=== PATIENT | female | born 1950 | race Caucasian/White ===

== ENCOUNTER 2018-11-02 16:18 | Inpatient (IN) | payer OTHER ==
[2018-11-02 19:51] VITALS: BMI 35.6
--- NOTE | 2018-11-03 00:36 | HP ---
COWS - Scale Resting Pulse: 0= NE 80 or Below Sweatin=Flushed/Facial Moisture Restless Observation: 3= Extraneous Movement Pupil Size: 0= Normal to Room Light Bone or Joint Aches: 4=Acute Joint/Muscle Pain Runny Nose/ Eye Tearin= Runny Nose/Eyes GI Upset > 30mins: 2= Nausea/Diarrhea Tremor Observation: 2= Slight Tremor Visible Yawning Observation: 1= 1-2x During Session Anxiety or Irritability: 2=Irritable/Anxious Goose Flesh Skin: 0=Smooth Skin COWS Score: 18 CIWA Score Nausea/Vomitin Muscle Tremors: 1-None Visible, but [place] Anxiety: 4-Mod. Anxious/Guarded Agitation: 4-Moderately Restless Paroxysmal Sweats: 3 Orientation: 0-Oriented Tacttile Disturbances: 0-None Auditory Disturbances: 0-None Visual Disturbances: 2-Mild Sensitivity Headache: 4-Moderately Severe CIWA-Ar Total Score: 21 - Admission Criteria OAS Guidelines: Admission for Medically Managed Detox: Requires at least one of the followin. CIWA greater than 12 2. Seizures within the past 24 hours 3. Delirium tremens within the past 24 hours 4. Hallucinations within the past 24 hours 5. Acute intervention needed for co occurring medical disorder 6. Acute intervention needed for co occurring psychiatric disorder 7. Severe withdrawal that cannot be handled at a lower level of care (continued vomiting, continued diarrhea, abnormal vital signs) requiring intravenous medication and/or fluids 8. Patient presents the following: CIWA greater than 12, Acute intervention needed for co-occurring med or psych disorder (hx/o non withdrawal seizures,) Admission Criteria Met: Admission criteria met Admission ROS [facility] Chief Complaint: c/o worsening withdrawal sx's Allergies/Adverse Reactions: Allergies Allergy/AdvReac Type Severity Reaction Status Date / Time strawberry Allergy Verified 11/03/18 00:30 History of Present Illness: 68 Y.O. FEMALE WITH HX/O ALCOHOLISM/OPIOID DEPENDENCE HERE FOR DETOX. CLIENT WAS REFERRED BY [facility] AFTER PRESENTING THERE FOR DETOX. THIS IS HER FIRST ADMISSION HERE. PRESENTS WITH C/O WITHDRAWAL SX'S. CIWA 21/ COWS 18. FRED 0, UTOX +FEN, OPI, MTD, BZO. CLIENT DENIES METHADONE PROGRAM OF BENZO ABUSE. STATES SHE DOES NOT REMEMBER WHEN SHE WAS LAST DETOXED. SHE REPORTS SNIFFING 4 BAGS OF HEROIN DAILY, LAST USE 1 DAY AGO. DRINKING 3 SHOTS OF VODKA DAILY LAST USE 1 DAY AGO. REPORTS LONGEST CLEAN TIME 1YEAR. STATES RELAPSING 1 MONTH AGO DUE TO THE OF HER MOTHER. DENIES MENTAL HEALTH HX/O TO SI/HI/AVH, DRUG OVERDOSE. REPORTS HX/O SEIZURES ON KEPPRA. LAST TAKEN 4 DAYS AGO SHE RAN OUT OF MEDICATION. LIVES ALONE, RETIRED, DENIES LEGALS. Exam Limitations: Physical Impairment (AMBULATES WITH CANE DUE TO UNSTEADY GAIT) - Ebola screening Have you traveled outside of the country in the last 21 days: No (N) Have you had contact with anyone from an Ebola affected area: No Have you been sick,other than usual withdrawal symptoms: No Do you have a fever: No - Review of Systems Constitutional: Chills, Loss of Appetite, Malaise, Night Sweats, Changes in sleep EENT: reports: Nose Congestion, Dental Problems (MISSING TEETH), Other (RUNNY NOSE) Respiratory: reports: No Symptoms reported Cardiac: reports: Edema (BLE) GI: reports: Diarrhea, Nausea, Poor Appetite, Poor Fluid Intake, Abdominal cramping : reports: No Symptoms Reported Musculoskeletal: reports: Joint Pain (BL KNEES) Integumentary: reports: Sweating Neuro: reports: Seizure, Tremors (FELT) Endocrine: reports: No Symptoms Reported Hematology: reports: No Symptoms Reported Psychiatric: reports: Orientated x3, Agitated (IRRITABLE), Anxious, Depressed Other Systems: Reviewed and Negative Patient History - Patient Medical History Hx Anemia: No Hx Asthma: No Hx Chronic Obstructive Pulmonary Disease (COPD): No Hx Cancer: No Hx Cardiac Disorders: No Hx Congestive Heart Failure: No Hx Hypertension: No Hx Hypercholesterolemia: No Hx Pacemaker: No HX Cerebrovascular Accident: No Hx Seizures: Yes Hx Dementia: No Hx Diabetes: No Hx Gastrointestinal Disorders: No Hx Liver Disease: No Hx Genitourinary Disorders: No Hx Sexually Transmitted Disorders: No Hx Renal Disease (ESRD): No Hx Thyroid Disease: No Hx Human Immunodeficiency Virus (HIV): No Hx Hepatitis C: No Hx Depression: No Hx Suicide Attempt: No Hx Bipolar Disorder: No Hx Schizophrenia: No Other Medical History: DENIES - Patient Surgical History Past Surgical History: Yes Other Surgical History: ECTOPIC Anesthesia Reaction: No - PPD History Previous Implant?: Yes Documented Results: Negative w/o proof Implanted On Prior [facility] Admission?: No PPD to be Administered?: Yes - Reproductive History Patient is a Female of Child Bearing Age (11 -55 yrs old): Yes Patient : No (NEG [facility]) - Smoking Cessation Smoking history: Never smoked Initiated information on smoking cessation: No - Substance & Tx. History Hx Alcohol Use: Yes Hx Substance Use: Yes Substance Use Type: Alcohol, Cocaine, Heroin Hx Substance Use Treatment: Yes ([facility]) - Substances Abused HEROIN Route: Inhalation Frequency: Daily Amount used: 4 BAGS Age of first use: 68 Date of Last Use: 11/01/18 VODKA Route: Oral Frequency: 3-6 times per week Amount used: 4 SHOTS Age of first use: 68 Date of Last Use: 11/01/18 COCAINE Route: Inhalation Frequency: Daily Amount used: 4 BAGS Age of first use: 68 Date of Last Use: 11/01/18 Family Disease History - Family Disease History Family Disease History: CA: Mother (LUNG-) Admission Physical Exam S - Vital Signs Vital Signs: Vital Signs - 24 hr 11/02/18 19:49 Temperature 96.8 F L Pulse Rate 75 Respiratory 18 Rate Blood Pressure 131/77 - Physical General Appearance: Yes: Appropriately Dressed, Moderate Distress, Tremorous ( FELT), Sweating (MOIST SKIN), Anxious, Other ([place]) HEENTM: Yes: EOMI, Normocephalic, Normal Voice, ERYN, Pharynx Normal, Other ( POOR DENTITION WITH MISSING TEETH) Respiratory: Yes: Within Normal Limits, Chest Non-Tender, Lungs Clear, No Respiratory Distress, No Accessory Muscle Use Neck: Yes: No masses,lesions,Nodules, Supple, Trachea in good position Breast: Yes: Breast Exam Deferred Cardiology: Yes: Regular Rhythm, Regular Rate, S1, S2, Murmur Abdominal: Yes: Non Tender, Soft, Protuberent Genitourinary: Yes: Other (NO C/O) Back: Yes: Normal Inspection Musculoskeletal: Yes: Other (UNSTEADY GAIT. AMBUALTED WITH CANE 2/2 JOINT PAIN) Extremities: Yes: Normal Capillary Refill, Non-Tender, Tremors Neurological: Yes: Fully Oriented, Alert, Motor Strength 5/5, Depressed Affect Integumentary: Yes: Warm, Moist, Pitting Edema (RCAE BLE) Lymphatic: Yes: Within Normal Limits - Diagnostic (1) Alcohol dependence with uncomplicated withdrawal Current Visit: Yes Status: Acute (2) Uncomplicated opioid dependence Current Visit: Yes Status: Acute (3) Cocaine abuse, uncomplicated Current Visit: Yes Status: Acute (4) Seizure disorder Current Visit: Yes Status: Chronic (5) Ambulates with cane Current Visit: Yes Status: Chronic (6) At risk for dehydration due to poor fluid intake Current Visit: Yes Status: Acute (7) Depressed affect Current Visit: Yes Status: Acute (8) Recent bereavement Current Visit: Yes Status: Acute (9) Substance induced mood disorder Current Visit: Yes Status: Acute Cleared for Admission [facility] - Detox or Rehab [facility] Level of Care: Medically Managed Detox Regimen/Protocol: Methadone/Librium Claeared for Rehab Admission: No [facility] Breath Alcohol Content Breath Alcohol Content: 0 Urine Pregancy Test - Result Urine Test Results: Negative - NO Line Present Urine Drug Screen - Results Drug Screen Negative: No Urine Drug Screen Results: OPI-Opiates, BZO-Benzodiazepines, MTD-Methadone, FEN- Fentanyl Inpatient Rehab Admission - Rehab Decision to Admit Inpatient rehab admission?: No
[2018-11-03] MEDS ORDERED: MAG HYDROX/AL HYDROX/SIMETH 30 ML UNIT-DOSE CUP PO PRN (00:43)
[2018-11-03] MEDS ORDERED: guaiFENesin 200 MG/10 ML 10 ML UNIT-DOSE CUPS PO PRN (00:43)
[2018-11-03] MEDS ORDERED: NALOXONE HCL 0.4 MG/ML VIAL IVPUSH PRN (00:43)
[2018-11-03] MEDS ORDERED: MENTHOL/PHENOL 1 EACH UD MM PRN (00:43)
[2018-11-03] MEDS ORDERED: P-EPHED 60MG/TRIPROLIDI 2.5MG TABLET PO PRN (00:43)
[2018-11-03] MEDS ORDERED: MAGNESIUM CITRATE 300 ML BOTTLE PO PRN (00:43)
[2018-11-03] MEDS ORDERED: DICYCLOMINE HCL 10 MG CAPSULE PO PRN (00:43)
[2018-11-03] MEDS ORDERED: MAGNESIUM HYDROX 2400MG/30ML ORAL SUSPENSION 30 ML CUP PO PRN (00:43)
[2018-11-03] MEDS ORDERED: cloNIDine HCL 0.1 MG TABLET PO PRN (00:43)
[2018-11-03] MEDS ORDERED: IBUPROFEN 400 MG TABLET (FP) PO PRN (00:43)
[2018-11-03] MEDS ORDERED: MELATONIN 5 MG TABLETS PO PRN (00:43)
[2018-11-03] MEDS ORDERED: BISMUTH SUBSALICYLATE 524 MG/30 ML UD PO PRN (00:43)
[2018-11-03] MEDS ORDERED: ONDANSETRON *ODT* 4 MG TABLET SL PRN (00:43)
[2018-11-03] MEDS ORDERED: METHOCARBAMOL 500 MG TABLET PO PRN (00:43)
[2018-11-03] MEDS ORDERED: chlordiazePOXIDE HCL 25 MG CAPSULE PO ONE (00:43)
[2018-11-03] MEDS ORDERED: chlordiazePOXIDE HCL 10 MG CAPSULE PO PRN (00:43)
[2018-11-03] MEDS ORDERED: hydrOXYzine PAMOATE 25 MG CAPSULE (FP) PO PRN (00:43)
[2018-11-03] MEDS ORDERED: METHADONE HCL 10 MG TABLET (FOR DETOX USE ONLY) PO ONE ×3 (00:53→23:00)
[2018-11-03] MEDS: chlordiazePOXIDE HCL 25 MG CAPSULE PO SCH ×3 (06:33→22:31)
[2018-11-03] MEDS: ACETAMINOPHEN 325 MG TABLET (FP) PO PRN (06:35)
[2018-11-03] MEDS: PRENATAL VITAMINS W/ FOLIC ACID TABLET (FP) PO SCH (10:08)
[2018-11-03 10:37] LABS: ALBUMIN 3.5 g/dl (3.4-5.0); ALK PHOS 113 U/L (45-117); ANION GAP 7 MMOL/L (8-16); BILIRUBIN,TOTAL 0.5 mg/dL (0.2-1); BLOOD UREA NITROGEN 19 mg/dL (7-18); CALCIUM 8.9 mg/dL (8.5-10.1); CHLORIDE 109 mmol/L (98-107); CO2 25 mmol/L (21-32); GLUCOSE,RANDOM 115 mg/dL (74-106); POTASSIUM 3.9 mmol/L (3.5-5.1); SGOT/AST 11 U/L (15-37); SGPT/ALT 17 U/L (13-61); SODIUM 141 mmol/L (136-145); TOT PROT 8.4 g/dl (6.4-8.2)
[2018-11-03 10:49] LABS: HEMATOCRIT 35.5 % (32.4-45.2); HEMOGLOBIN 12.5 GM/dL (10.7-15.3); MCH 29.9 pg (25.7-33.7); MCHC 35.3 g/dl (32.0-36.0); MEAN CELL VOLUME 84.8 fl (80-96); MEAN PLT VOLUME 7.6 fl (7.5-11.1); PLATELET COUNT 275 K/MM3 (134-434); RBC 4.19 M/mm3 (3.60-5.2); RDW 14.3 % (11.6-15.6); WHITE BLOOD COUNT 5.3 K/mm3 (4.0-10.0)
--- NOTE | 2018-11-03 12:45 | PN ---
[facility] Progress Note Note: Patient was admitted early this morning for alcohol and opiate withdrawal. She reports sweats, N/D and leg pain. She is not in apparent distress, her vital signs have been stable. Last Vital Signs Temp Pulse Resp BP Pulse Ox 98.1 F 87 18 122/61 11/03/18 10:19 11/03/18 10:19 11/03/18 10:19 11/03/18 10:19 Monitoring ongoing
[2018-11-03 13:14] LABS: URINE APPEARANCE Clear; URINE BILIRUBIN Negative (<2.0 mg/dL); URINE COLOR Yellow; URINE GLUCOSE (UA) Negative (NEGATIVE); URINE KETONE Trace (NEGATIVE); URINE LEUK ESTERASE 1+ (NEGATIVE); URINE NITRITE Negative (NEGATIVE); URINE PROTEIN Trace (NEGATIVE); URINE UROBILINOGEN 0.2 mg/dL (0.2-1.0)
[2018-11-03 15:23] LABS: EPI CELLS 1+ /HPF (FEW); URINE BACTERIA 1+ /hpf (NONE SEEN)
--- NOTE | 2018-11-03 16:18 | CONSULT ---
[facility] Psychiatric Consult - Data Date of interview: 11/03/18 Admission source: [facility] Identifying data: First admission to [facility] for this 68 y/o female self-referred for detoxification (heroin, cocaine, alcohol). Patient is after 25 years of marriage, no children, homeless, unemployed, retired from the [employer] and supported on Social Security benefits. Substance Abuse History: Confirmed by the patient in this interview. Details in current [facility] report as follows : Smoking history: Never smoked. Initiated information on smoking cessation: No. Substance & Tx. History. Hx Alcohol Use : Yes. Hx Substance Use: Yes. Substance Use Type: Alcohol, Cocaine, Heroin. Hx Substance Use Treatment: Yes ([facility]). - Substances Abused. HEROIN. Route: Inhalation. Frequency: Daily. Amount used: 4 BAGS. Age of first use: 68. Date of Last Use: 11/01/18. VODKA. Route: Oral. Frequency: 3-6 times per week. Amount used: 4 SHOTS. Age of first use: 68. Date of Last Use: 11/01. COCAINE. Route: Inhalation. Frequency: Daily. Amount used: 4 BAGS. Age of first use: 68. Date of Last Use: 11/01/18 Medical History: Seizure disorder (on levetiracetam). Distant history of ectopic . Psychiatric History: Patient denies. Physical/Sexual Abuse/Trauma History: Stressors : homelessness since of mother (could not afford rent), financial difficulties, limited network of support, serious medical illness (epilepsy) and addiction to substances. Additional Comment: Urine Drug Screen Results: OPI-Opiates, BZO-Benzodiazepines , MTD-Methadone, FEN-Fentanyl. Noted. Mental Status Exam - Mental Status Exam Alert and Oriented to: Time, Place, Person Cognitive Function: Good Patient Appearance: Well Groomed (short stature, overweight, neatly groomed, appears stated age) Mood: Withdrawn, Hopeful Affect: Appropriate, Normal Range, Constricted (mildly constricted) Patient Behavior: Fatigued, Cooperative (well-mannered, pleasant, friendly with interviewer) Speech Pattern: Clear, Appropriate Voice Loudness: Normal Thought Process: Intact, Goal Oriented Thought Disorder: Not Present Hallucinations: Denies Suicidal Ideation: Denies Homicidal Ideation: Denies Insight/Judgement: Poor Sleep: Poorly, Difficulty falling asleep Appetite: Good Muscle strength/Tone: Normal Gait/Station: Normal (observed ambulating without a cane ; steady gait) Psychiatric Findings - Problem List (Herreid 1, 2,3) (1) Alcohol dependence with uncomplicated withdrawal Current Visit: Yes Status: Acute (2) Uncomplicated opioid dependence Current Visit: Yes Status: Chronic (3) Cocaine abuse, uncomplicated Current Visit: Yes Status: Chronic (4) Substance induced mood disorder Current Visit: Yes Status: Chronic (5) Insomnia Current Visit: Yes Status: Chronic - Initial Treatment Plan Initial Treatment Plan: Psychoeducation. Sleep hygiene. Detoxification. Support and encouragement provided in this session. AA/NA meeting. Groups. Counseling about existing methods of relapse prevention for alcohol/opioid dependence. Insomnia will be addressed with mirtazapine 7.5 mg po hs. Side effects/benefits are discussed with the patient. Ms Singleton has expressed her agreement with this plan of care. Observation.
[2018-11-03] MEDS: THIAMINE HCL 100 MG TABLET (FP) PO SCH (22:30)
[2018-11-03] MEDS: MIRTAZAPINE 15 MG TABLET (FP) PO SCH (22:30)
[2018-11-04] MEDS: chlordiazePOXIDE 5 MG CAPSULE PO SCH ×3 (06:03→22:26)
[2018-11-04] MEDS ORDERED: METHADONE HCL 5 MG TABLET (FOR DETOX USE ONLY) PO ONE (10:00)
[2018-11-04] MEDS: PRENATAL VITAMINS W/ FOLIC ACID TABLET (FP) PO SCH (10:16)
--- NOTE | 2018-11-04 14:01 | PN ---
S CIWA - CIWA Score Nausea/Vomitin Muscle Tremors: 2 Anxiety: 1-Mildly Anxious Agitation: 1-Slight > Activity Paroxysmal Sweats: 2 Orientation: 0-Oriented Tacttile Disturbances: 1-Very Mild Itch/Numbness Auditory Disturbances: 0-None Visual Disturbances: 0-None Headache: 2-Mild CIWA-Ar Total Score: 12 [facility] Progress Note (SOAP) Subjective: c/o fatigue, interrupted sleep, chills Objective: 11/04/18 13:59 Vital Signs Temperature 98.4 F 11/04/18 13:48 Pulse Rate 74 11/04/18 13:48 Respiratory Rate 16 11/04/18 13:48 Blood Pressure 135/72 11/04/18 13:48 O2 Sat by Pulse Oximetry (%) Laboratory Last Values WBC 5.3 K/mm3 (4.0-10.0) 11/03/18 07:50 RBC 4.19 M/mm3 (3.60-5.2) 11/03/18 07:50 Hgb 12.5 GM/dL (10.7-15.3) 11/03/18 07:50 Hct 35.5 % (32.4-45.2) 11/03/18 07:50 MCV 84.8 fl (80-96) 11/03/18 07:50 MCH 29.9 pg (25.7-33.7) 11/03/18 07:50 MCHC 35.3 g/dl (32.0-36.0) 11/03/18 07:50 RDW 14.3 % (11.6-15.6) 11/03/18 07:50 Plt Count 275 K/MM3 (134-434) 11/03/18 07:50 MPV 7.6 fl (7.5-11.1) 11/03/18 07:50 Sodium 141 mmol/L (136-145) 11/03/18 07:50 Potassium 3.9 mmol/L (3.5-5.1) 11/03/18 07:50 Chloride 109 mmol/L (98-107) H 11/03/18 07:50 Carbon Dioxide 25 mmol/L (21-32) 11/03/18 07:50 Anion Gap 7 MMOL/L (8-16) L 11/03/18 07:50 BUN 19 mg/dL (7-18) H 11/03/18 07:50 Creatinine 1.0 mg/dL (0.55-1.3) 11/03/18 07:50 Creat Clearance w eGFR 55.47 (>60) 11/03/18 07:50 Random Glucose 115 mg/dL (74-106) H 11/03/18 07:50 Calcium 8.9 mg/dL (8.5-10.1) 11/03/18 07:50 Total Bilirubin 0.5 mg/dL (0.2-1) 11/03/18 07:50 AST 11 U/L (15-37) L 11/03/18 07:50 ALT 17 U/L (13-61) 11/03/18 07:50 Alkaline Phosphatase 113 U/L (45-117) 11/03/18 07:50 Total Protein 8.4 g/dl (6.4-8.2) H 11/03/18 07:50 Albumin 3.5 g/dl (3.4-5.0) 11/03/18 07:50 Urine Color Yellow 11/03/18 07:50 Urine Appearance Clear 11/03/18 07:50 Urine pH 6.0 (5.0-8.0) 11/03/18 07:50 Ur Specific [place] >= 1.030 (1.010-1.035) 11/03/18 07:50 Urine Protein Trace (NEGATIVE) 11/03/18 07:50 Urine Glucose (UA) Negative (NEGATIVE) 11/03/18 07:50 Urine Ketones Trace (NEGATIVE) 11/03/18 07:50 Urine Blood Negative (NEGATIVE) 11/03/18 07:50 Urine Nitrite Negative (NEGATIVE) 11/03/18 07:50 Urine Bilirubin Negative (<2.0 mg/dL) 11/03/18 07:50 Urine Urobilinogen 0.2 mg/dL (0.2-1.0) 11/03/18 07:50 Ur Leukocyte Esterase 1+ (NEGATIVE) H 11/03/18 07:50 Urine WBC (Auto) 3-5 /hpf (3-5) 11/03/18 07:50 Urine RBC (Auto) 0-3 /hpf (0-3) 11/03/18 07:50 Ur Epithelial Cells 1+ /HPF (FEW) 11/03/18 07:50 Urine Bacteria 1+ /hpf (NONE SEEN) 11/03/18 07:50 RPR Titer Nonreactive (NONREACTIVE) 11/03/18 07:50 labs noted Assessment: 11/04/18 14:00 aox3 no distress full ROM ambulating in the unit Plan: withdrawal sx increase po fluids continue detox continue to monitor
[2018-11-04] MEDS: ACETAMINOPHEN 325 MG TABLET (FP) PO PRN (14:06)
[2018-11-04] MEDS: MIRTAZAPINE 15 MG TABLET (FP) PO SCH (22:25)
[2018-11-04] MEDS: THIAMINE HCL 100 MG TABLET (FP) PO SCH (22:25)
[2018-11-05] MEDS ORDERED: chlordiazePOXIDE HCL 10 MG CAPSULE PO PRN (05:00)
[2018-11-05] MEDS: chlordiazePOXIDE HCL 10 MG CAPSULE PO SCH ×3 (05:41→21:24)
[2018-11-05] MEDS ORDERED: METHADONE HCL 10 MG TABLET (FOR DETOX USE ONLY) PO ONE (10:00)
[2018-11-05] MEDS: PRENATAL VITAMINS W/ FOLIC ACID TABLET (FP) PO SCH (10:24)
--- NOTE | 2018-11-05 11:20 | PN ---
[facility] CIWA - CIWA Score Nausea/Vomitin-No Nausea/No Vomiting Muscle Tremors: 3 Anxiety: 2 Agitation: 2 Paroxysmal Sweats: 2 Orientation: 0-Oriented Tacttile Disturbances: 0-None Auditory Disturbances: 0-None Visual Disturbances: 0-None Headache: 0-None Present CIWA-Ar Total Score: 9 [facility] COWS - Scale Resting Pulse: 0= OR 80 or Below Sweatin= Chills/Flushing Restless Observation: 0= Sits Still Pupil Size: 0= Normal to Room Light Bone or Joint Aches: 1= Mild Discomfort Runny Nose/ Eye Tearin= Nasal Congestion GI Upset > 30mins: 0= None Tremor Observation of Outstretched Hands: 1= Tremor [place], Not Seen Yawning Observation: 1= 1-2x During Session Anxiety or Irritability: 2=Irritable/Anxious Goose Flesh Skin: 0=Smooth Skin COWS Score: 7 S Progress Note (SOAP) Subjective: agitation sweats interrupted sleep Objective: 11/05/18 11:19 Vital Signs Temperature 97.5 F L 11/05/18 09:26 Pulse Rate 73 11/05/18 09:26 Respiratory Rate 18 11/05/18 09:26 Blood Pressure 122/74 11/05/18 09:26 O2 Sat by Pulse Oximetry (%) Laboratory Tests 11/03/18 11/03/18 11/03/18 07:50 07:50 07:50 WBC 5.3 RBC 4.19 Hgb 12.5 Hct 35.5 MCV 84.8 MCH 29.9 MCHC 35.3 RDW 14.3 Plt Count 275 MPV 7.6 Sodium 141 Potassium 3.9 Chloride 109 H Carbon Dioxide 25 Anion Gap 7 L BUN 19 H Creatinine 1.0 Creat Clearance w eGFR 55.47 Random Glucose 115 H Calcium 8.9 Total Bilirubin 0.5 AST 11 L ALT 17 Alkaline Phosphatase 113 Total Protein 8.4 H Albumin 3.5 Urine Color Urine Appearance Urine pH Ur Specific [place] Urine Protein Urine Glucose (UA) Urine Ketones Urine Blood Urine Nitrite Urine Bilirubin Urine Urobilinogen Ur Leukocyte Esterase Urine WBC (Auto) Urine RBC (Auto) Ur Epithelial Cells Urine Bacteria RPR Titer Nonreactive 11/03/18 07:50 WBC RBC Hgb Hct MCV MCH MCHC RDW Plt Count MPV Sodium Potassium Chloride Carbon Dioxide Anion Gap BUN Creatinine Creat Clearance w eGFR Random Glucose Calcium Total Bilirubin AST ALT Alkaline Phosphatase Total Protein Albumin Urine Color Yellow Urine Appearance Clear Urine pH 6.0 Ur Specific [place] >= 1.030 Urine Protein Trace Urine Glucose (UA) Negative Urine Ketones Trace Urine Blood Negative Urine Nitrite Negative Urine Bilirubin Negative Urine Urobilinogen 0.2 Ur Leukocyte Esterase 1+ H Urine WBC (Auto) 3-5 Urine RBC (Auto) 0-3 Ur Epithelial Cells 1+ Urine Bacteria 1+ RPR Titer aaox3 ambulating no acute distress Assessment: 11/05/18 11:19 withdrawal sx Plan: continue detox increase fluids d/c in am
[2018-11-05] MEDS: MIRTAZAPINE 15 MG TABLET (FP) PO SCH (21:24)
[2018-11-05] MEDS: THIAMINE HCL 100 MG TABLET (FP) PO SCH (21:24)
--- NOTE | 2018-11-05 22:53 | EKG ---
Test Reason : Blood Pressure : / mmHG Vent. Rate : 069 BPM Atrial Rate : 069 BPM P-R Int : 154 ms QRS Dur : 074 ms QT Int : 404 ms P-R-T Axes : 020 008 013 degrees QTc Int : 432 ms NORMAL SINUS RHYTHM NORMAL ECG NO PREVIOUS ECGS AVAILABLE Confirmed by GELA DICKERSON MD ([id number]) on 11/05/2018 10:53:36 PM Referred By: Confirmed By:GELA DICKERSON MD
[2018-11-06] MEDS: chlordiazePOXIDE HCL 10 MG CAPSULE PO SCH (05:56)
[2018-11-06] MEDS ORDERED: METHADONE HCL 5 MG TABLET (FOR DETOX USE ONLY) PO ONE (06:00)
--- NOTE | 2018-11-06 08:58 | DS ---
[facility] Detox Discharge Summary Admission Date: 11/03/18 Discharge Date: 11/06/18 - History Present History: Alcohol Dependence, Cocaine Dependence, Opioid Dependence - Physical Exam Results Vital Signs: Vital Signs Temperature 97.0 F L 11/06/18 06:00 Pulse Rate 68 11/06/18 06:00 Respiratory Rate 18 11/06/18 06:00 Blood Pressure 136/84 11/06/18 06:00 O2 Sat by Pulse Oximetry (%) - Treatment Hospital Course: Detox Protocol Followed, Detoxed Safely, Responded well, Discharged Condition Good, Rehab Referral Accepted - Diagnosis (1) Alcohol dependence with uncomplicated withdrawal Current Visit: Yes Status: Chronic (2) At risk for dehydration due to poor fluid intake Current Visit: Yes Status: Acute (3) Depressed affect Current Visit: Yes Status: Acute (4) Recent bereavement Current Visit: Yes Status: Acute (5) Ambulates with cane Current Visit: Yes Status: Chronic (6) Cocaine abuse, uncomplicated Current Visit: Yes Status: Chronic (7) Insomnia Current Visit: Yes Status: Chronic (8) Seizure disorder Current Visit: Yes Status: Chronic (9) Substance induced mood disorder Current Visit: Yes Status: Chronic (10) Uncomplicated opioid dependence Current Visit: Yes Status: Chronic - AMA Did Patient Leave Against Medical Advice: No (outpatient rehab ([facility]))
[2018-11-06] MEDS: PRENATAL VITAMINS W/ FOLIC ACID TABLET (FP) PO SCH (11:13)
[2018-11-06 17:51] VITALS: BP 157/85; PULSE 80; TEMP 97.2
== END 2018-11-06 19:45 | disposition other institution (70) | DRG 897 ==
LOC: YASAS 16:18 → Y6N 11-03 01:08
PROVIDERS: ADMIT Surgery; ATTEND Surgery
PROC: HZ2ZZZZ Detoxification Services for Substance Abuse Treatment (ICD-10-PCS; principal; 2018-11-03)
DX: F11.23 Opioid dependence with withdrawal (principal); F14.20 Cocaine dependence, uncomplicated; F10.230 Alcohol dependence with withdrawal, uncomplicated; F19.24 Other psychoactive substance dependence with psychoactive substance-induced mood disorder; G40.909 Epilepsy, unspecified, not intractable, without status epilepticus; G47.00 Insomnia, unspecified; R45.89 Other symptoms and signs involving emotional state; Z99.89 Dependence on other enabling machines and devices; Z63.4 Disappearance and death of family member; Z91.89 Other specified personal risk factors, not elsewhere classified
CPT/HCPCS: 36415; 80053; 80177; 81003; 81015; 85027; 86593; 87086; 93005; 93010

== ENCOUNTER 2018-11-06 20:39 | Inpatient (IN) | payer OTHER ==
[2018-11-06] MEDS ORDERED: MENTHOL/PHENOL 1 EACH UD MM PRN (20:46)
[2018-11-06] MEDS ORDERED: guaiFENesin 200 MG/10 ML 10 ML UNIT-DOSE CUPS PO PRN (20:46)
[2018-11-06] MEDS ORDERED: MAGNESIUM CITRATE 300 ML BOTTLE PO PRN (20:46)
[2018-11-06] MEDS ORDERED: P-EPHED 60MG/TRIPROLIDI 2.5MG TABLET PO PRN (20:46)
[2018-11-06] MEDS ORDERED: LOPERAMIDE HCL 2 MG CAPSULE PO PRN (20:46)
[2018-11-06] MEDS ORDERED: MAGNESIUM HYDROX 2400MG/30ML ORAL SUSPENSION 30 ML CUP PO PRN (20:46)
--- NOTE | 2018-11-06 20:48 | HP ---
[facility] Re[facility] Assess/Revision - Admission History Admitted to Rehab from: [facility] Date of Admission to Rehab: 11/06/18 - Findings Detox History & Physical reviewed: Yes Concur with findings: Yes Inpatient Rehab Admission - Rehab Decision to Admit Inpatient rehab admission?: Yes - Initial Determination Are CD services needed?: Yes Free of communicable disease: Yes Not in need of hospitalization: Yes - Rehab Admission Criteria Previous failed treatment: Yes Poor recovery environment: Yes Comorbidities: Yes Lacks judgement: Yes Patient is meeting Inpatient Rehab admission criteria:: Yes
[2018-11-06] MEDS: THIAMINE HCL 100 MG TABLET (FP) PO SCH (22:27)
[2018-11-06] MEDS: MELATONIN 5 MG TABLETS PO PRN (22:27)
[2018-11-06] MEDS: IBUPROFEN 400 MG TABLET (FP) PO PRN (22:27)
[2018-11-07] MEDS: PRENATAL VITAMINS W/ FOLIC ACID TABLET (FP) PO SCH (10:36)
[2018-11-07] MEDS: IBUPROFEN 400 MG TABLET (FP) PO PRN (15:38)
[2018-11-07] MEDS: MELATONIN 5 MG TABLETS PO PRN (21:56)
[2018-11-07] MEDS: levETIRAcetam 500 MG TABLET (FP) PO SCH (21:56)
[2018-11-07] MEDS: THIAMINE HCL 100 MG TABLET (FP) PO SCH (21:56)
[2018-11-08] MEDS: hydrOXYzine PAMOATE 50 MG CAPSULE (FP) PO PRN ×3 (02:05→21:41)
[2018-11-08] MEDS: IBUPROFEN 400 MG TABLET (FP) PO PRN (08:40)
[2018-11-08] MEDS: PRENATAL VITAMINS W/ FOLIC ACID TABLET (FP) PO SCH (10:30)
[2018-11-08] MEDS: levETIRAcetam 500 MG TABLET (FP) PO SCH ×2 (10:30→21:41)
--- NOTE | 2018-11-08 12:34 | PN ---
[facility] Progress Note Note: PT DETOXED FROM 11/03 -11/06/18 FOR HEROIN AND ALCOHOL ON THEN REFERRED HERE FOR REHAB. PT NOW C/O WITHDRAWAL SX-BODY ACHES,IRRITABILITY,CRAVINGS. PT ALSO REPORTS [facility] BUT WAS ADMINISTRATIVELY AND RAPIDLY TAPERED DUE TO INSURANCE ISSUES. PT EXPRESSED DESIRE TO GET BACK ON MMTP OR OTHER FORM OF MAT LIKE SUBOXONE. PT WILL FOLLOW UP WITH HER COUNSELOR TO DISCUSS AFTERCARE PLANS AND POSSIBLE STARTING ON SUBOXONE WHILE IN REHAB HERE. Vital Signs (72 hours) 11/07/18 11/07/18 11/07/18 00:30 03:30 07:45 Temperature 97.6 F Pulse Rate 67 Respiratory 18 18 18 Rate Blood Pressure 156/84 11/08/18 11/08/18 07:16 09:23 Temperature 97.2 F L Pulse Rate 80 84 Respiratory 17 Rate Blood Pressure 140/87 128/72 NAD RESIDUAL W/S PLAN:CLONIDINE 0.1 MG PO BID FLEXERIL 10 MG PO TID FOLLOW UP WITH PT TO EVALUATE FOR MAT.
[2018-11-08] MEDS: CYCLOBENZAPRINE HCL 10 MG TABLET (FP) PO SCH ×2 (13:13→21:41)
[2018-11-08] MEDS: cloNIDine HCL 0.1 MG TABLET PO SCH ×2 (13:13→21:41)
[2018-11-08] MEDS: ACETAMINOPHEN 325 MG TABLET (FP) PO PRN (19:51)
[2018-11-08] MEDS: THIAMINE HCL 100 MG TABLET (FP) PO SCH (21:41)
[2018-11-08] MEDS: MELATONIN 5 MG TABLETS PO PRN (21:41)
[2018-11-09] MEDS: CYCLOBENZAPRINE HCL 10 MG TABLET (FP) PO SCH ×3 (06:22→21:27)
[2018-11-09] MEDS: levETIRAcetam 500 MG TABLET (FP) PO SCH ×2 (10:31→21:27)
[2018-11-09] MEDS: cloNIDine HCL 0.1 MG TABLET PO SCH ×2 (10:32→21:27)
[2018-11-09] MEDS: PRENATAL VITAMINS W/ FOLIC ACID TABLET (FP) PO SCH (10:32)
--- NOTE | 2018-11-09 13:42 | PN ---
[facility] Progress Note Note: UA FOR DRUG SCREEN ORDERED FOR 11/12/18 RE:PRE-SCREENING FOR MAT. C/O FATIGUE AND INTERMITTENT SLEEP. Vital Signs (72 hours) 11/07/18 11/07/18 11/07/18 00:30 03:30 07:45 Temperature 97.6 F Pulse Rate 67 Respiratory 18 18 18 Rate Blood Pressure 156/84 11/08/18 11/08/18 11/08/18 07:16 09:23 13:14 Temperature 97.2 F L Pulse Rate 80 84 79 Respiratory 17 Rate Blood Pressure 140/87 128/72 11/08/18 11/09/18 11/09/18 21:15 00:30 03:30 Temperature Pulse Rate 86 Respiratory 18 18 Rate Blood Pressure 114/75 11/09/18 11/09/18 07:31 10:00 Temperature 97.3 F L Pulse Rate 64 82 Respiratory 18 18 Rate Blood Pressure 160/108 H 118/80 MELATONIN DIRECTED VISTARIL PRN FOR ANXIETY.
[2018-11-09] MEDS: ACETAMINOPHEN 325 MG TABLET (FP) PO PRN (19:09)
[2018-11-09] MEDS: hydrOXYzine PAMOATE 50 MG CAPSULE (FP) PO PRN (21:27)
[2018-11-09] MEDS: THIAMINE HCL 100 MG TABLET (FP) PO SCH (21:27)
[2018-11-09] MEDS: MELATONIN 5 MG TABLETS PO PRN (21:28)
[2018-11-10] MEDS: CYCLOBENZAPRINE HCL 10 MG TABLET (FP) PO SCH ×3 (06:57→21:05)
[2018-11-10] MEDS: hydrOXYzine PAMOATE 50 MG CAPSULE (FP) PO PRN ×2 (06:57→21:07)
[2018-11-10] MEDS: PRENATAL VITAMINS W/ FOLIC ACID TABLET (FP) PO SCH (10:13)
[2018-11-10] MEDS: levETIRAcetam 500 MG TABLET (FP) PO SCH ×2 (10:13→21:05)
[2018-11-10] MEDS: cloNIDine HCL 0.1 MG TABLET PO SCH ×2 (10:13→21:06)
[2018-11-10] MEDS: ACETAMINOPHEN 325 MG TABLET (FP) PO PRN ×2 (10:14→14:55)
[2018-11-10] MEDS: THIAMINE HCL 100 MG TABLET (FP) PO SCH (21:05)
[2018-11-10] MEDS: MELATONIN 5 MG TABLETS PO PRN (21:06)
[2018-11-10] MEDS: METHYL SALICYLATE/MENTHOL OINT 30 GM TUBE TP SCH (22:34)
[2018-11-11] MEDS: CYCLOBENZAPRINE HCL 10 MG TABLET (FP) PO SCH ×3 (07:29→21:30)
[2018-11-11] MEDS: hydrOXYzine PAMOATE 50 MG CAPSULE (FP) PO PRN (07:29)
[2018-11-11] MEDS: METHYL SALICYLATE/MENTHOL OINT 30 GM TUBE TP SCH ×2 (09:17→21:30)
[2018-11-11] MEDS: cloNIDine HCL 0.1 MG TABLET PO SCH ×2 (09:18→21:30)
[2018-11-11] MEDS: ACETAMINOPHEN 325 MG TABLET (FP) PO PRN (09:18)
[2018-11-11] MEDS: levETIRAcetam 500 MG TABLET (FP) PO SCH ×2 (09:18→21:30)
[2018-11-11] MEDS: PRENATAL VITAMINS W/ FOLIC ACID TABLET (FP) PO SCH (09:18)
[2018-11-11] MEDS ORDERED: PT OWN MED DRAWER 7, Y5N ONE ×2 (12:45→19:55)
[2018-11-11] MEDS: THIAMINE HCL 100 MG TABLET (FP) PO SCH (21:30)
[2018-11-11] MEDS: MELATONIN 5 MG TABLETS PO PRN (21:30)
[2018-11-12] MEDS: CYCLOBENZAPRINE HCL 10 MG TABLET (FP) PO SCH ×3 (06:50→21:24)
[2018-11-12] MEDS: PRENATAL VITAMINS W/ FOLIC ACID TABLET (FP) PO SCH (10:24)
[2018-11-12] MEDS: cloNIDine HCL 0.1 MG TABLET PO SCH ×2 (10:24→21:23)
[2018-11-12] MEDS: METHYL SALICYLATE/MENTHOL OINT 30 GM TUBE TP SCH ×2 (10:24→21:25)
[2018-11-12] MEDS: levETIRAcetam 500 MG TABLET (FP) PO SCH ×2 (10:24→21:23)
--- NOTE | 2018-11-12 11:21 | PN ---
[facility] Progress Note Note: MELATONIN ADJUSTED TO 10MG FOR INSOMNIA. IF PERSISTS, CONSULT PSYCHIATRY. Vital Signs Temperature 97.1 F L 11/12/18 07:17 Pulse Rate 97 H 11/12/18 10:00 Respiratory Rate 18 11/12/18 07:17 Blood Pressure 125/80 11/12/18 10:00 O2 Sat by Pulse Oximetry (%)
--- NOTE | 2018-11-12 13:39 | PN ---
[facility] Progress Note Note: C/O ANKLE SWELLING. PT ALSO C/O RESTLESSNESS/ANXIETY, INTERMITTENT SLEEP, MUSCLE /BONE ACHES,RUNNY NOSE,HOT/COLD FLASHES. PT WILL BE GOING TO [facility] FOR AFTERCARE. Vital Signs (72 hours) 11/09/18 11/10/18 11/10/18 21:00 00:30 03:30 Temperature Pulse Rate 76 Respiratory 18 18 Rate Blood Pressure 126/77 11/10/18 11/10/18 11/11/18 07:31 09:00 03:30 Temperature 97.0 F L Pulse Rate 66 89 Respiratory 16 89 H 18 Rate Blood Pressure 115/71 107/67 11/11/18 11/11/18 11/11/18 07:33 09:30 22:13 Temperature 97.3 F L Pulse Rate 76 83 98 H Respiratory 18 183 H Rate Blood Pressure 124/74 118/80 112/74 11/12/18 11/12/18 11/12/18 00:30 07:17 10:00 Temperature 97.1 F L Pulse Rate 80 97 H Respiratory 18 18 Rate Blood Pressure 127/85 125/80 11/12/18 13:48 Temperature Pulse Rate 85 Respiratory Rate Blood Pressure 137/86 Laboratory Tests 11/08/18 08:00 Levetiracetam 5.6 L FEET: SLIGHT BILATERAL ANKLE SWELLING. PLAN:LASIX 20 MG PO DAILY X 3 DAYS DRUG SCREEN FOR MAT
[2018-11-12] MEDS: FUROSEMIDE 20 MG TABLET (FP) PO SCH (13:49)
--- NOTE | 2018-11-12 16:07 | PN ---
[facility] COWS - Scale Resting Pulse: 1= [place] 81-100 Sweatin= Chills/Flushing Restless Observation: 0= Sits Still Pupil Size: 0= Normal to Room Light Bone or Joint Aches: 4=Acute Joint/Muscle Pain Runny Nose/ Eye Tearin= Runny Nose/Eyes GI Upset > 30mins: 0= None Tremor Observation of Outstretched Hands: 0= None Yawning Observation: 1= 1-2x During Session Anxiety or Irritability: 2=Irritable/Anxious Goose Flesh Skin: 3=Piloerection COWS Score: 14
[2018-11-12] MEDS: THIAMINE HCL 100 MG TABLET (FP) PO SCH (21:23)
[2018-11-12] MEDS: MELATONIN 5 MG TABLETS PO PRN (21:24)
[2018-11-13] MEDS ORDERED: PT OWN MED DRAWER 7, Y5N ONE ×2 (00:51→21:33)
[2018-11-13] MEDS: ACETAMINOPHEN 325 MG TABLET (FP) PO PRN ×3 (00:52→19:42)
[2018-11-13] MEDS: hydrOXYzine PAMOATE 50 MG CAPSULE (FP) PO PRN (01:49)
[2018-11-13] MEDS: cloNIDine HCL 0.1 MG TABLET PO SCH ×2 (10:39→21:33)
[2018-11-13] MEDS: PRENATAL VITAMINS W/ FOLIC ACID TABLET (FP) PO SCH (10:39)
[2018-11-13] MEDS: levETIRAcetam 500 MG TABLET (FP) PO SCH ×2 (10:39→21:31)
[2018-11-13] MEDS: FUROSEMIDE 20 MG TABLET (FP) PO SCH (10:39)
[2018-11-13] MEDS: METHYL SALICYLATE/MENTHOL OINT 30 GM TUBE TP SCH ×2 (10:40→21:33)
[2018-11-13] MEDS: CYCLOBENZAPRINE HCL 10 MG TABLET (FP) PO SCH ×2 (13:51→21:31)
[2018-11-13 16:02] LABS: ALBUMIN 3.5 g/dl (3.4-5.0); ALK PHOS 107 U/L (45-117); ANION GAP 6 MMOL/L (8-16); BILIRUBIN,TOTAL 0.3 mg/dL (0.2-1); BLOOD UREA NITROGEN 26 mg/dL (7-18); CALCIUM 9.2 mg/dL (8.5-10.1); CHLORIDE 104 mmol/L (98-107); CO2 28 mmol/L (21-32); CREATININE 0.9 mg/dL (0.55-1.3); GLUCOSE,RANDOM 86 mg/dL (74-106); POTASSIUM 4.4 mmol/L (3.5-5.1); SGOT/AST 20 U/L (15-37); SGPT/ALT 50 U/L (13-61); SODIUM 138 mmol/L (136-145); TOT PROT 8.3 g/dl (6.4-8.2)
[2018-11-13] MEDS: THIAMINE HCL 100 MG TABLET (FP) PO SCH (21:30)
[2018-11-13] MEDS: MELATONIN 5 MG TABLETS PO PRN (21:31)
[2018-11-14] MEDS ORDERED: PT OWN MED DRAWER 7, Y5N ONE (03:30)
[2018-11-14] MEDS: CYCLOBENZAPRINE HCL 10 MG TABLET (FP) PO SCH ×3 (06:49→21:20)
[2018-11-14] MEDS: PRENATAL VITAMINS W/ FOLIC ACID TABLET (FP) PO SCH (10:17)
[2018-11-14] MEDS: hydrOXYzine PAMOATE 50 MG CAPSULE (FP) PO PRN (10:17)
[2018-11-14] MEDS: cloNIDine HCL 0.1 MG TABLET PO SCH ×2 (10:17→21:20)
[2018-11-14] MEDS: FUROSEMIDE 20 MG TABLET (FP) PO SCH (10:17)
[2018-11-14] MEDS: levETIRAcetam 500 MG TABLET (FP) PO SCH ×2 (10:17→21:20)
[2018-11-14] MEDS: METHYL SALICYLATE/MENTHOL OINT 30 GM TUBE TP SCH ×2 (10:18→21:21)
[2018-11-14] MEDS: ACETAMINOPHEN 325 MG TABLET (FP) PO PRN ×2 (11:40→21:23)
[2018-11-14] MEDS: LIDOCAINE 5% TOPICAL PATCH TP SCH (15:09)
[2018-11-14] MEDS: THIAMINE HCL 100 MG TABLET (FP) PO SCH (21:20)
[2018-11-14] MEDS: LIDOCAINE PATCH REMOVAL MC SCH (21:21)
[2018-11-14] MEDS: MELATONIN 5 MG TABLETS PO PRN (21:22)
[2018-11-15] MEDS: IBUPROFEN 400 MG TABLET (FP) PO PRN (00:21)
[2018-11-15] MEDS: CYCLOBENZAPRINE HCL 10 MG TABLET (FP) PO SCH ×3 (06:56→21:12)
[2018-11-15] MEDS: ACETAMINOPHEN 325 MG TABLET (FP) PO PRN ×2 (06:57→18:11)
[2018-11-15] MEDS ORDERED: PT OWN MED DRAWER 7, Y5N ONE (08:38)
[2018-11-15] MEDS: levETIRAcetam 500 MG TABLET (FP) PO SCH ×2 (10:21→21:12)
[2018-11-15] MEDS: cloNIDine HCL 0.1 MG TABLET PO SCH ×2 (10:21→21:12)
[2018-11-15] MEDS: LIDOCAINE 5% TOPICAL PATCH TP SCH (10:21)
[2018-11-15] MEDS: METHYL SALICYLATE/MENTHOL OINT 30 GM TUBE TP SCH ×2 (10:24→21:13)
[2018-11-15] MEDS: PRENATAL VITAMINS W/ FOLIC ACID TABLET (FP) PO SCH (10:24)
--- NOTE | 2018-11-15 10:41 | CONSULT ---
[facility] Psychiatric Consult - Data Date of interview: 11/15/18 Admission source: 6N Identifying data: Ms Singleton is a 68 years old female, retired from [employer] receiving social security, homeless seeking inpatient rehab treatment for alcohol, opioid and cocaine Substance Abuse History: Reports history of alcohol, heroin and cocaine use. Refer to addiction counselor's summary for further information Medical History: Significant for seizure disorder (on levetiracetam) and history of ectopic . Psychiatric History: Denies history of previous psychiatric treatment. However, she was seen on 11/03/[address] Moses while admitted to detox and she was prescribed Remeron 7.5 mg po HS. Claims medication was not helping much Physical/Sexual Abuse/Trauma History: Stressors as reported by Dr Moses whom patient saw on 11/03/18 in detox : homelessness since of mother (could not afford rent), financial difficulties, limited network of support, serious medical illness (epilepsy) and addiction to substances. However, denies history of emotional, physical or sexual abuse as well as DV relationship Additional Comment: Denies criminal history Mental Status Exam - Mental Status Exam Alert and Oriented to: Place, Person Cognitive Function: Fair Patient Appearance: Well Groomed Mood: Hopeful, Euthymic Affect: Appropriate Patient Behavior: Cooperative Speech Pattern: Clear Voice Loudness: Normal Thought Process: Intact Thought Disorder: Not Present Hallucinations: Denies Suicidal Ideation: Denies Homicidal Ideation: Denies Insight/Judgement: Fair Sleep: Poorly Appetite: Good Muscle strength/Tone: Normal Gait/Station: Normal Psychiatric Findings - Problem List ([place] 1, 2,3) (1) Substance-induced sleep disorder Current Visit: Yes Status: Acute (2) Alcohol dependence Current Visit: Yes Status: Acute (3) Opioid dependence Current Visit: Yes Status: Acute (4) Cocaine dependence Current Visit: Yes Status: Acute (5) Seizure disorder Current Visit: No Status: Chronic (6) History of ectopic Current Visit: Yes Status: Resolved - Initial Treatment Plan Initial Treatment Plan: 1) Start Belsomra 10 mg po HS prn for insomnia. 2) Continue inpatient rehabilitation
[2018-11-15] MEDS: hydrOXYzine PAMOATE 50 MG CAPSULE (FP) PO PRN (21:12)
[2018-11-15] MEDS: THIAMINE HCL 100 MG TABLET (FP) PO SCH (21:12)
[2018-11-15] MEDS: LIDOCAINE PATCH REMOVAL MC SCH (21:14)
[2018-11-16] MEDS: CYCLOBENZAPRINE HCL 10 MG TABLET (FP) PO SCH ×3 (06:40→21:31)
[2018-11-16] MEDS: PRENATAL VITAMINS W/ FOLIC ACID TABLET (FP) PO SCH (10:24)
[2018-11-16] MEDS: levETIRAcetam 500 MG TABLET (FP) PO SCH ×2 (10:24→21:31)
[2018-11-16] MEDS: LIDOCAINE 5% TOPICAL PATCH TP SCH (10:24)
[2018-11-16] MEDS: cloNIDine HCL 0.1 MG TABLET PO SCH ×2 (10:24→21:32)
[2018-11-16] MEDS: METHYL SALICYLATE/MENTHOL OINT 30 GM TUBE TP SCH ×2 (10:27→23:12)
[2018-11-16] MEDS: MAG HYDROX/AL HYDROX/SIMETH 30 ML UNIT-DOSE CUP PO PRN (20:53)
[2018-11-16] MEDS: THIAMINE HCL 100 MG TABLET (FP) PO SCH (21:32)
[2018-11-16] MEDS: SUVOREXANT 10 MG TABLET PO PRN (21:32)
[2018-11-16] MEDS: LIDOCAINE PATCH REMOVAL MC SCH (23:12)
[2018-11-17] MEDS: hydrOXYzine PAMOATE 50 MG CAPSULE (FP) PO PRN (01:17)
[2018-11-17] MEDS: CYCLOBENZAPRINE HCL 10 MG TABLET (FP) PO SCH ×3 (06:37→21:34)
[2018-11-17] MEDS: METHYL SALICYLATE/MENTHOL OINT 30 GM TUBE TP SCH ×2 (10:27→21:36)
[2018-11-17] MEDS: levETIRAcetam 500 MG TABLET (FP) PO SCH ×2 (10:28→21:34)
[2018-11-17] MEDS: PRENATAL VITAMINS W/ FOLIC ACID TABLET (FP) PO SCH (10:28)
[2018-11-17] MEDS: cloNIDine HCL 0.1 MG TABLET PO SCH ×2 (10:28→21:34)
[2018-11-17] MEDS: LIDOCAINE 5% TOPICAL PATCH TP SCH (10:30)
[2018-11-17] MEDS: ACETAMINOPHEN 325 MG TABLET (FP) PO PRN (17:51)
[2018-11-17] MEDS: SUVOREXANT 10 MG TABLET PO PRN (21:34)
[2018-11-17] MEDS: THIAMINE HCL 100 MG TABLET (FP) PO SCH (21:34)
[2018-11-17] MEDS: LIDOCAINE PATCH REMOVAL MC SCH (21:35)
[2018-11-17] MEDS: MELATONIN 5 MG TABLETS PO PRN (21:35)
[2018-11-18] MEDS: CYCLOBENZAPRINE HCL 10 MG TABLET (FP) PO SCH ×3 (06:12→21:18)
[2018-11-18] MEDS: levETIRAcetam 500 MG TABLET (FP) PO SCH ×2 (10:22→21:18)
[2018-11-18] MEDS: PRENATAL VITAMINS W/ FOLIC ACID TABLET (FP) PO SCH (10:22)
[2018-11-18] MEDS: cloNIDine HCL 0.1 MG TABLET PO SCH ×2 (10:22→21:18)
[2018-11-18] MEDS: METHYL SALICYLATE/MENTHOL OINT 30 GM TUBE TP SCH ×2 (10:23→21:19)
[2018-11-18] MEDS: LIDOCAINE 5% TOPICAL PATCH TP SCH (10:24)
[2018-11-18] MEDS: THIAMINE HCL 100 MG TABLET (FP) PO SCH (21:18)
[2018-11-18] MEDS: hydrOXYzine PAMOATE 50 MG CAPSULE (FP) PO PRN (21:18)
[2018-11-18] MEDS: SUVOREXANT 10 MG TABLET PO PRN (21:19)
[2018-11-18] MEDS: LIDOCAINE PATCH REMOVAL MC SCH (21:20)
[2018-11-18] MEDS: MAG HYDROX/AL HYDROX/SIMETH 30 ML UNIT-DOSE CUP PO PRN (23:37)
[2018-11-19] MEDS: CYCLOBENZAPRINE HCL 10 MG TABLET (FP) PO SCH (06:22)
[2018-11-19 07:10] VITALS: TEMP 97.6
[2018-11-19 09:09] VITALS: BP 117/71; PULSE 85
[2018-11-19] MEDS: cloNIDine HCL 0.1 MG TABLET PO SCH (09:36)
[2018-11-19] MEDS: PRENATAL VITAMINS W/ FOLIC ACID TABLET (FP) PO SCH (09:37)
[2018-11-19] MEDS: LIDOCAINE 5% TOPICAL PATCH TP SCH (09:37)
[2018-11-19] MEDS: levETIRAcetam 500 MG TABLET (FP) PO SCH (09:37)
[2018-11-19] MEDS: METHYL SALICYLATE/MENTHOL OINT 30 GM TUBE TP SCH (09:38)
[2018-11-19 11:08] LABS: URINE AMPHETAMINES NEGATIVE
[2018-11-19 11:09] LABS: METHADONE,QUALITATIVE URINE POSITIVE; OPIATES QL URINE NEGATIVE; PHENCYCLIDINE,QUAL URINE NEGATIVE
[2018-11-19 11:10] LABS: COCAINE QUALITATIVE URINE NEGATIVE; MARIJUANA QL URINE CANNABINOID NEGATIVE; PROPOXYPHENE QL URINE NEGATIVE
--- NOTE | 2018-11-19 12:18 | PN ---
[facility] Progress Note Note: PT COMPLETED REHAB AND DISCHARGED TODAY. PT MET WITH HER COUNSELOR, AJ HUGHES AND WAS REFERRED TO [facility] FOR CD AFTERCARE. PT WILL FOLLOW UP WITH MAT INITIATION AT [facility] WITH DR SPARROW PER COUNSELOR. PT REPORTS PRIMARY CARE AT [facility]. 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 PT IS ALERT O X 3. DENIES S/H /I. Home Medications Medication Instructions Recorded levETIRAcetam [Keppra -] 500 mg PO BID #60 tablet 11/19/18 Vital Signs (72 hours) 11/16/18 11/17/18 11/17/18 20:54 00:30 03:30 Temperature 97.1 F L Pulse Rate 89 Respiratory 18 18 18 Rate Blood Pressure 128/83 11/17/18 11/17/18 11/17/18 07:24 09:46 20:58 Temperature 97.4 F L Pulse Rate 75 82 92 H Respiratory 18 18 18 Rate Blood Pressure 127/79 139/80 125/75 11/18/18 11/18/18 11/18/18 00:30 03:30 07:17 Temperature 97.7 F Pulse Rate 77 Respiratory 17 18 18 Rate Blood Pressure 118/73 11/18/18 11/18/18 11/19/18 09:09 21:15 00:30 Temperature Pulse Rate 85 110 H Respiratory 18 Rate Blood Pressure 121/73 115/77 11/19/18 11/19/18 07:09 09:09 Temperature 97.6 F Pulse Rate 77 85 Respiratory 18 Rate Blood Pressure 119/73 117/71 Laboratory Tests 11/08/18 11/12/18 11/13/18 08:00 14:00 10:40 Sodium 138 Potassium 4.4 Chloride 104 Carbon Dioxide 28 Anion Gap 6 L BUN 26 H Creatinine 0.9 Creat Clearance w eGFR 62.64 Random Glucose 86 Calcium 9.2 Total Bilirubin 0.3 AST 20 ALT 50 Alkaline Phosphatase 107 Total Protein 8.3 H Albumin 3.5 Ur Opiates Confirm Negative Ur Methadone, Qual Positive U Propoxyphene Interp Negative Urine Barbiturates Negative Levetiracetam 5.6 L Urine PCP Confirm Negative Urine Methamphetamines Negative U Benzodiazepines Scrn No Result Required. Urine Cocaine Confirm Negative Urine Cannabinoids Negative Drug Screen Comment No Result Required. 11/13/18 10:40 Sodium Potassium Chloride Carbon Dioxide Anion Gap BUN Creatinine Creat Clearance w eGFR Random Glucose Calcium Total Bilirubin AST ALT Alkaline Phosphatase Total Protein Albumin Ur Opiates Confirm Ur Methadone, Qual U Propoxyphene Interp Urine Barbiturates Levetiracetam 11.4 Urine PCP Confirm Urine Methamphetamines U Benzodiazepines Scrn Urine Cocaine Confirm Urine Cannabinoids Drug Screen Comment NAD MEDICALLY STABLE PLAN: FOLLOW UP WITH CD AFTERCARE RECOMMENDED FOLLOW UP WITH MEDICAL MANAGEMENT WITH PCP WITHIN 1-2 WEEKS AFTER DISCHARGE. All Active Problems Alcohol dependence (Chronic) Recent bereavement (Acute) Ambulates with cane (Chronic) Cocaine abuse, uncomplicated (Chronic) Insomnia (Chronic) Seizure disorder (Chronic) Uncomplicated opioid dependence (Chronic)
== END 2018-11-19 09:57 | disposition home or self-care (01) | DRG 895 ==
LOC: YASAS 20:39 → Y3E 20:40
PROVIDERS: ADMIT Neuromusculoskeletal Medicine & OMM; ATTEND Neuromusculoskeletal Medicine & OMM
PROC: HZ42ZZZ Group Counseling for Substance Abuse Treatment, Cognitive-Behavioral (ICD-10-PCS; principal; 2018-11-06)
DX: F11.20 Opioid dependence, uncomplicated (principal); F14.20 Cocaine dependence, uncomplicated; F19.282 Other psychoactive substance dependence with psychoactive substance-induced sleep disorder; F10.20 Alcohol dependence, uncomplicated; G47.00 Insomnia, unspecified; Z63.4 Disappearance and death of family member; R26.89 Other abnormalities of gait and mobility; Z99.89 Dependence on other enabling machines and devices; Z86.69 Personal history of other diseases of the nervous system and sense organs; Z87.59 Personal history of other complications of pregnancy, childbirth and the puerperium
CPT/HCPCS: 36415; 80053; 80177; 80307; J0735